=== PATIENT | female | born 1980 | race Caucasian/White ===

== ENCOUNTER → 2018-11-01 | Outpatient (CLI) | payer BC ==
--- NOTE | 2018-11-01 08:50 | MM ---
Reason for exam: additional evaluation requested from abnormal screening. Last mammogram was performed 1 month ago. History: Took hormonal contraceptives for 8 years beginning at age 16. Physical Findings: Nurse did not find any significant physical abnormalities on exam. MG 3D Work Up W/Cad LT Spot compression CC, spot compression XCCL, and XCCL view(s) were taken of the left breast. Prior study comparison: October 09, 2018, bilateral MG 3d screening mammo w/cad. March 18, 2015, bilateral MG screening mammo w CAD. The breast tissue is heterogeneously dense. This may lower the sensitivity of mammography. The previously seen left lateral asymmetry at posterior depth relates to the pectoralis muscle. These results were verbally communicated with the patient and result sheet given to the patient on 11/01/18. ASSESSMENT: Benign, BI-RAD 2 RECOMMENDATION: Return to routine screening mammogram schedule for both breasts.
== END ==
LOC: RADMAMWWP 07:10
PROVIDERS: ATTEND Obstetrics & Gynecology
DX: R92.8 Other abnormal and inconclusive findings on diagnostic imaging of breast (principal)
CPT/HCPCS: 77061; 77065

== ENCOUNTER → 2018-11-20 | Outpatient (CLI) | payer BC ==
--- NOTE | 2018-11-20 10:06 | US ---
EXAMINATION TYPE: US transvaginal DATE OF EXAM: 11/20/2018 COMPARISON: US 10/09/2018 CLINICAL HISTORY: N83.0 Previous ovarian cyst left side. Irregular bleeding TECHNIQUE: . Transvaginal sonographic images of the pelvis were acquired. Date of LMP: 11/04/2018 EXAM MEASUREMENTS: Uterus: 8.2 x 6.2 x 6.2 cm Endometrial Stripe: 2.4 cm Right Ovary: 3.5 x 2.1 x 1.9 cm Left Ovary: 3.9 x 3.3 x 3.8 cm 1. Uterus: Retroflexed Heterogeneous 2. Endometrium: Thickened and vascular 3. Right Ovary: Multiple smaller cystic areas visualized, largest measuring 1.7 x 1.0 x 1.3 cm 4. Left Ovary: Multiple cystic areas visualized. Irregular cystic area with echogenic vascular compo nent within measuring 2.4 x 1.2 x 2.3 cm 5. Bilateral Adnexa: Small amount of free fluid visualized within the left adnexa 6. Posterior cul-de-sac: wnl IMPRESSION: 1. Vascular thickened endometrium that is suspicious. Endometrial polyp, endometrial mass or less lik rl endometrial hyperplasia should be considered. Direct visualization with tissue sampling is recomm ended. 2. Persistent complex left adnexal mass. Given the internal vascularity of a 2.4 cm solid component w ithin a left ovarian cyst this lesion is suspicious. Further evaluation with pelvic MRI to evaluate f or enhancement of this large mural nodule could be performed or consultation with gynecologic/oncolog ic surgery. 3. Simple appearing right ovarian cysts.
== END | disposition home or self-care (01) ==
LOC: RADUSWWP 09:05
PROVIDERS: ATTEND Obstetrics & Gynecology
DX: R93.89 Abnormal findings on diagnostic imaging of other specified body structures (principal)
CPT/HCPCS: 76830

== ENCOUNTER 2018-12-11 06:12 | Day surgery (SDC) | payer BC ==
[2018-12-10 08:26] VITALS: BMI 22.6
--- NOTE | 2018-12-10 12:32 | P.HPOB ---
History of Present Illness H&P Date: 12/10/18 Chief Complaint: Dysfunctional uterine bleeding. this patient is a pleasant 38-year-old 2 para 2 female who initially presented to me for evaluation of heavy and irregular menstrual cycles. Patient 's had menstrual cycles that occurring every 2 weeks with two-week breaks between her cycles. She had an endometrial biopsy which was normal however ultrasound showed endometrial thickening to 2.5 cm. Patient is now presenting for hysteroscopy D&C and NovaSure endometrial ablation for further treatment. Review of Systems Genitourinary: Reports as per HPI, Reports abnormal vaginal bleeding Menstruation: Reports cycle variable, Reports period heavy Past Medical History Past Medical History: Blood Disorder Additional Past Medical History / Comment(s): patient has a MTHFR gene mutation (heterozygous). History of Any Multi-Drug Resistant Organisms: None Reported Additional Past Surgical History / Comment(s): [place] teeth. Past Anesthesia/Blood Transfusion Reactions: No Reported Reaction Past Psychological History: No Psychological Hx Reported Smoking Status: Never smoker Past Alcohol Use History: None Reported, Rare Past Drug Use History: None Reported - Past Family History Mother Family Medical History: No Reported History Medications and Allergies Home Medications Medication Instructions Recorded Confirmed Type Ascorbic Acid [Vitamin C] 500 mg PO DAILY 12/10/18 12/10/18 History Multivitamins, Thera [Multivitamin 1 tab PO DAILY 12/10/18 12/10/18 History (formulary)] Turmeric Root Extract [Turmeric] 500 mg PO DAILY 12/10/18 12/10/18 History Allergies Allergy/AdvReac Type Severity Reaction Status Date / Time No Known Allergies Allergy Verified 12/10/18 08:18 Exam Intake and Output 12/09/18 12/10/18 12/10/18 22:59 06:59 14:59 Other: Weight 63.503 kg - OBG Physical Exam Abdomen: bowel sounds normal, no diffuse tenderness, no bruit present, no guarding noted, no hepatomegaly, no splenomegaly, no mass Vulva: both: normal Vagina: normal moisture, no discharge Cervix: no lesion, no discharge Uterus: normal size, normal contour Adnexa: both: normal Results Transvaginal ultrasound shows the endometrium to be 2.4 cm. She also has multiple small cystic areas and bilateral ovaries which we're following. Assessment and Plan Assessment: This is a pleasant 38-year-old 2 para 2 female with dysfunctional uterine bleeding and endometrial thickening on ultrasound. Patient's had normal endometrial sampling but continues to have bleeding problems and therefore now presents for hysteroscopy, D&C and also requesting endometrial ablation. I have discussed these surgeries and benefits risks. She understands the risks of infection, bleeding, possible uterine perforation/ thermal injury, possible future sampling problems. Patient also understands this is not a form of control. All the patient's questions have been answered and a written consent is obtained. (1) Dysfunctional uterine bleeding Status: Acute Code(s): N93.8 - OTHER SPECIFIED ABNORMAL UTERINE AND VAGINAL BLEEDING SNOMED Code(s): 48111685 (2) Endometrial thickening on ultrasound Status: Acute Code(s): R93.89 - ABNORMAL FINDINGS ON DX IMAGING OF OTH BODY STRUCTURES SNOMED Code(s): 953139017
[~2018-12-11 06:12] MED LIST: DEXAMETHASONE SOD PHOSPHATE 10 MG/ML 1 ML VIAL IV ONE; HYDROmorphone 0.5 MG/0.5 ML SYRINGE IVP PRN; LACTATED RINGERS 1,000 ML IV SCH; MIDAZOLAM (PF) 2 MG/2 ML VIAL IV PRN; ONDANSETRON 4 MG/2 ML VIAL IVP ONE; Pre Op ABX Message 1 EACH MISC MISCELLANE ONE; SCOPOLAMINE 1.5MG/72HR PATCH TRANSDERM ONE
[2018-12-11] MEDS ORDERED: LIDOCAINE 1% 20 ML VIAL (10MG/ML) FOR IV START INTRADERMA ONE (06:45)
[2018-12-11] MEDS ORDERED: KETOROLAC 30 MG/ML 1 ML VIAL ONE (07:19)
[2018-12-11] MEDS ORDERED: LIDOCAINE 1% INJ 10MG/ML (20 ML MDV) ONE (07:19)
[2018-12-11] MEDS ORDERED: MIDAZOLAM 2 MG/2 ML VIAL ONE (07:19)
[2018-12-11] MEDS ORDERED: SUCCINYLCHOLINE CHLORIDE 100 MG/5 ML SYR IV ONE (07:19)
[2018-12-11] MEDS ORDERED: PROPOFOL 10 MG/ML 20 ML VIAL IV ONE (07:19)
[2018-12-11 08:06] VITALS: RESP 18; TEMP 97.8
--- NOTE | 2018-12-11 08:09 | P.OP ---
Date of Procedure: 12/11/18 Preoperative Diagnosis: Dysfunctional uterine bleeding Postoperative Diagnosis: Same, endometrial polyp/fibroid Procedure(s) Performed: #1: Hysteroscopy. #2: Dilation and curettage. #3: Removal of intrauterine polyp/fibroid. #4: NovaSure endometrial ablation Anesthesia: NICOLE Surgeon: Johnnie Barajas Estimated Blood Loss (ml): 25 Urine output (ml): 50 Pathology: other (Intrauterine growths. Endometrial curetting) Condition: stable Disposition: PACU Indications for Procedure: Please see dictated H&P for intimate details of this patient's admission. Brief summary this is a pleasant 38-year-old 2 para 2 female whose had several month history of menorrhagia and dysfunctional uterine bleeding. Ultrasound showed persistent endometrial thickening to 2.4 cm. She now presents for hysteroscopy D&C and NovaSure endometrial ablation for treatment. Patient I have discussed the surgery and risks including risks of infection, bleeding, possible uterine perforation, and/or thermal injury. All the patient' s questions are answered and a written consent is obtained. Operative Findings: This patient had a large 3 cm solid growth of the endometrium consistent with a polyp or leiomyoma. Description of Procedure: This patient is taken to the operating room where she is laid in the supine position. She subsequent undergoes general endotracheal anesthesia without incident. With an adequate level of anesthesia she's placed in dorsal lithotomy position. She has a vaginal perineal prep and drape. Bladder is drained for 50 mL of clear urine. Place weighted speculum posterior vagina. Anterior lip of cervix and grabbed with an Allis clamp. Then gently sound the uterus to 8.5 cm. The cervix is dilated gently to allow the hysteroscope into the uterine cavity. Using saline solution hysteroscopy is performed and there is a large intrauterine polyp or fibroid. Hysteroscope was then removed. Using polyp forceps and ring forceps I'm able to twist this growth off of its base and appears to be completely removed.'s quite large approximately 2-3 cm in dimensions. It does appear benign. With this done I didn't do a gentle 4 quadrant curettage this is sent separately to pathology. The cervix is quite dilated from this large polyp but patient is requested a trial of ablation therefore the NovaSure device is then opened. It appears to be intact. Set at a length of 6 cm. It opens up to a width of 4.2 cm. It does passes the cavity integrity test is then enabled at [address] setting and does work properly for 26 seconds. This time the NovaSure device is removed. Hysteroscopy is then performed the uterine cavity appears to be ablated. There is minimal bleeding. All counts are correct 3. There are no complications. Patient is awakened from anesthesia and taken recovery room satisfactory condition.
[2018-12-11 09:06] VITALS: BP 109/74; PULSE 78
== END 2018-12-11 09:26 | disposition home or self-care (01) ==
LOC: OR 06:12
PROVIDERS: ATTEND Obstetrics & Gynecology
DX: D25.9 Leiomyoma of uterus, unspecified (principal); E72.12 Methylenetetrahydrofolate reductase deficiency; D75.9 Disease of blood and blood-forming organs, unspecified
CPT/HCPCS: 81025; 88305; 58563; J2250; J1100; J2405; J2001; J1885; J0330; J2704

== ENCOUNTER → 2019-01-01 | Outpatient (CLI) | payer BC ==
--- NOTE | 2019-01-01 17:15 | US ---
EXAMINATION TYPE: US transvaginal DATE OF EXAM: 01/01/2019 COMPARISON: NONE CLINICAL HISTORY: N83.0 Ovarian Cyst. follow up on left ovarian cyst with solid component, recent abl ation with poly/fibroid removal. TECHNIQUE: TV. Date of LMP: 12/22/2018 EXAM MEASUREMENTS: Uterus: 8.7 x 6.1 x 5.3cm Endometrial Stripe: 1.2cm Right Ovary: 2.7 x 2.8 x 2.8cm Left Ovary: 3.1 x 3.0 x 2.6cm 1. Uterus: Retroverted wnl 2. Endometrium: wnl 3. Right Ovary: multiple cystic areas, one had internal echoes and measures 1.1 x 1.4 x 0.7cm 4. Left Ovary: simple cyst =2.1 x 1.9 x 1.3cm, also a 1.7cm cysts with internal solid lesion, with v ascularity, measuring 1.0cm 5. Bilateral Adnexa: mild free fluid on the right 6. Posterior cul-de-sac: wnl IMPRESSION: 1. Complex right ovarian cyst measuring 1.1 x 1.4 x 0.7 cm. Follow-up is recommended. 2. 1.7 cm complex cyst which contains solid component measuring 1.0 x 0.4 x 1.0 cm. This was present previously. Correlate with laboratory results.
== END | disposition home or self-care (01) ==
LOC: RADUSWWP 08:22
PROVIDERS: ATTEND Obstetrics & Gynecology
DX: N83.292 Other ovarian cyst, left side (principal); N83.291 Other ovarian cyst, right side
CPT/HCPCS: 36415; 76830; 86304

== ENCOUNTER → 2019-08-27 | Outpatient (CLI) | payer BC ==
[2019-08-27 10:56] LABS: Basophils % (A) 1 %; Eosinophils # (A) 0.1 k/uL (0-0.7); Eosinophils % (A) 3 %; HCT 42.2 % (34.0-46.0); HGB 13.5 gm/dL (11.4-16.0); Lymphocytes # (A) 1.7 k/uL (1.0-4.8); Lymphocytes % (A) 36 %; MCH 28.3 pg (25.0-35.0); MCHC 31.9 g/dL (31.0-37.0); MCV 88.7 fL (80.0-100.0); Monocytes # (A) 0.2 k/uL (0-1.0); Monocytes % (A) 4 %; Neutrophils # (A) 2.7 k/uL (1.3-7.7); Neutrophils % (A) 55 %; Platelet Count 240 k/uL (150-450); RBC 4.75 m/uL (3.80-5.40); RDW 13.8 % (11.5-15.5); WBC 4.9 k/uL (3.8-10.6)
[2019-08-27 16:14] LABS: African American GFR (CKD) 106.1 (60.0-200.0); Albumin 4.5 g/dL (3.80-4.90); Albumin/Globulin Ratio 2.25 (1.60-3.17); Anion Gap 10.3 mmol/L (4.00-12.00); BUN/Creat Ratio 18.75 Ratio (12.00-20.00); Calcium 9.5 mg/dL (8.7-10.3); Carbon Dioxide 24.7 mmol/L (21.6-31.8); Chol/HDL Ratio 4.59; LDL Cholesterol,Calculated 143.6 mg/dL (0.0-131.0); Total Bilirubin 0.7 mg/dL (0.2-1.2); Total Protein 6.5 g/dL (6.2-8.2); VLDL Calculation 32.4 mg/dL (5.00-40.00)
[2019-08-27 16:24] LABS: Iron Saturation 22.92 (12.00-45.00)
[2019-08-27 16:37] LABS: Ferritin 25.1 ng/mL (10.0-291.0)
[2019-08-27 16:44] LABS: Folate, Serum 12.3 ng/mL
[2019-08-27 17:02] LABS: Cancer Antigen 125 69.4 U/mL (0.0-30.1)
== END | disposition home or self-care (01) ==
LOC: LABWHC1 09:33
PROVIDERS: ATTEND Family Medicine
DX: Z00.00 Encounter for general adult medical examination without abnormal findings (principal); D50.9 Iron deficiency anemia, unspecified; R20.0 Anesthesia of skin; R19.09 Other intra-abdominal and pelvic swelling, mass and lump
CPT/HCPCS: 36415; 80053; 80061; 82607; 82728; 82746; 83540; 83550; 85025; 86304

== ENCOUNTER → 2019-08-27 | Outpatient (CLI) | payer BC ==
--- NOTE | 2019-08-27 10:32 | US ---
EXAMINATION TYPE: US pelvis complete transvag DATE OF EXAM: 08/27/2019 COMPARISON: NONE CLINICAL HISTORY: Ovarian Cyst N83.0. h/o multiple ovarian lesions, CA125 done last winter was high a t 39, h/o ablation and endometrial polyp removal, no pain today TECHNIQUE: TA/TV. Transabdominal sonographic images of the pelvis were acquired. Transvaginal sono graphic images were medically necessary to better assess the following anatomy: all organs, bladder n ot full Date of LMP: 08/13/2019 EXAM MEASUREMENTS: Uterus: 8.0 x 5.0 x 6.0 cm Endometrial Stripe: 0.6 cm Right Ovary: 3.2 x 2.9 x 2.3 cm Left Ovary: 3.1 x 4.2 x 3.1 cm 1. Uterus: Retroverted wnl 2. Endometrium: wnl 3. Right Ovary: 1.0cm dominate follicle versus involuting cyst 4. Left Ovary: 1.8 x 2.0 x 2.0cm complex cyst with internal septations along with a solid lesion, mil d vascularity seen, that was noted on previous exams measuring today at 1.9cm 5. Bilateral Adnexa: wnl 6. Posterior cul-de-sac: wnl IMPRESSION: 1. Suspected cysts on the bilateral ovaries. 2. This is complex on the left and work-up or follow-up is recommended. Correlate with laboratory sobia dies.
== END | disposition home or self-care (01) ==
LOC: RADUSWWP 08:54
PROVIDERS: ATTEND Obstetrics & Gynecology
DX: N83.209 Unspecified ovarian cyst, unspecified side (principal)
CPT/HCPCS: 76830; 76856

== ENCOUNTER 2019-11-30 16:21 | Emergency (ER) | payer BC ==
[2019-11-30] MEDS ORDERED: SODIUM CHLORIDE 0.9% 1,000 ML IV STA (17:00)
[2019-11-30 17:32] LABS: Appearance,Urine Clear (Clear); Bacteria,Urine Rare /hpf; Bilirubin,Urine Negative (Negative); Blood,Urine Negative (Negative); Color,Urine Yellow; Glucose,Urine (UA) Negative (Negative); Ketones,Urine Negative (Negative); Leukocyte Esterase,Urine Trace (Negative); Mucus,Urine Rare /hpf; Nitrite,Urine Negative (Negative); PH, Urine 5.5 (5.0-8.0); Protein,Urine Negative (Negative); RBC,Urine <1 /hpf (0-5); Specific Gravity,Urine 1.014 (1.001-1.035); Squamous Epithelial Cell,Urine 3 /hpf (0-4); Urobilinogen,Urine <2.0 mg/dL (<2.0); WBC,Urine 2 /hpf (0-5)
[2019-11-30 17:39] LABS: Basophils # (A) 0.2 k/uL (0-0.2); Basophils % (A) 2 %; Eosinophils # (A) 0.2 k/uL (0-0.7); Eosinophils % (A) 2 %; HCT 47.9 % (34.0-46.0); HGB 15.7 gm/dL (11.4-16.0); Lymphocytes # (A) 2.8 k/uL (1.0-4.8); Lymphocytes % (A) 29 %; MCH 29.2 pg (25.0-35.0); MCHC 32.7 g/dL (31.0-37.0); MCV 89.4 fL (80.0-100.0); Mean Platelet Volume 7.3; Monocytes # (A) 0.4 k/uL (0-1.0); Monocytes % (A) 4 %; Neutrophils # (A) 5.8 k/uL (1.3-7.7); Neutrophils % (A) 61 %; Platelet Count 363 k/uL (150-450); RBC 5.36 m/uL (3.80-5.40); RDW 12.4 % (11.5-15.5); WBC 9.6 k/uL (3.8-10.6)
[2019-11-30 17:48] LABS: ALT 19 U/L (4-34); AST 27 U/L (14-36); African American GFR (CKD) >90 (>60 ml/min/1.73 sqM); Albumin 5.2 g/dL (3.5-5.0); Alkaline Phosphatase 85 U/L (38-126); Anion Gap 13 mmol/L; Blood Urea Nitrogen 15 mg/dL (7-17); Calcium 10.1 mg/dL (8.4-10.2); Carbon Dioxide 20 mmol/L (22-30); Chloride 106 mmol/L (98-107); Glucose 93 mg/dL (74-99); Non-African American GFR(CKD) 87 (>60 ml/min/1.73 sqM); Potassium 4.1 mmol/L (3.5-5.1); Sodium 139 mmol/L (137-145); Total Bilirubin 0.6 mg/dL (0.2-1.3); Total Protein 8.8 g/dL (6.3-8.2)
[2019-11-30 18:12] VITALS: PULSE 83
--- NOTE | 2019-11-30 18:23 | ED ---
Abdominal Pain HPI - General Chief Complaint: Abdominal Pain Stated Complaint: post op pain Time Seen by Provider: 11/30/19 16:30 Source: patient Mode of arrival: ambulatory Limitations: no limitations - History of Present Illness Initial Comments: The patient is a 39-year-old female with past medical history of ovarian cysts who presents to the emergency room for right lower quadrant pain. She had surgery by Dr. Ybarra from the [facility] on April. This is because of an enlarged left ovary. She had a left oophorectomy and bilateral fallopian tube removal. She states that she woke up from surgery and had excruciating right lower quadrant pain. It is worse when she sits up unassisted when she stands. It is a sharp stabbing sensation which improves when she sits down. She states she was sent home and told to take Motrin and Tylenol. She had persistence the pain. She followed up with her surgeon last week who gave her prescription for Bracey. States she hasn't been taking medications because she does not want narcotics. He did order an ultrasound for Sunday. 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 Denies any abnormal vaginal bleeding or discharge. Las t menstrual cycle ended on the eighth of this month. Denies any urinary complaints to include dysuria, hematuria or difficulty voiding. No issues in her bowel movements. Denies diarrhea, constipation, melenic stools or hematochezia. No retention. Denies a back or flank pain. No fevers or chills. She has been taking Motrin which has been keeping her symptoms controlled. There are no alleviating, precipitating or modifying factors - Related Data Home Medications Medication Instructions Recorded Confirmed Ascorbic Acid [Vitamin C] 500 mg PO DAILY 12/10/18 11/30/19 Multivitamins, Thera [Multivitamin 1 tab PO DAILY 12/10/18 11/30/19 (formulary)] Acetaminophen [Tylenol Extra 1,000 mg PO Q8H PRN 11/30/19 11/30/19 Strength] Ibuprofen [Motrin Ib] 800 mg PO Q8H PRN 11/30/19 11/30/19 Allergies Allergy/AdvReac Type Severity Reaction Status Date / Time No Known Allergies Allergy Verified 11/30/19 17:58 Review of Systems ROS Statement: Those systems with pertinent positive or pertinent negative responses have been documented in the HPI. ROS Other: All systems not noted in ROS Statement are negative. Past Medical History Past Medical History: No Reported History Additional Past Medical History / Comment(s): ovarian cyst History of Any Multi-Drug Resistant Organisms: None Reported Past Surgical History: Uterine Ablation Past Psychological History: No Psychological Hx Reported Smoking Status: Never smoker Past Alcohol Use History: Rare Past Drug Use History: None Reported General Exam Limitations: no limitations General appearance: alert, in no apparent distress Head exam: Present: atraumatic, normocephalic, normal inspection Eye exam: Present: normal appearance, PERRL, EOMI. Absent: scleral icterus, conjunctival injection, periorbital swelling ENT exam: Present: normal exam, mucous membranes moist Neck exam: Present: normal inspection. Absent: tenderness, meningismus, lymphadenopathy Respiratory exam: Present: normal lung sounds bilaterally. Absent: respiratory distress, wheezes, rales, rhonchi, stridor Cardiovascular Exam: Present: regular rate, normal rhythm, normal heart sounds. Absent: systolic murmur, diastolic murmur, rubs, gallop, clicks GI/Abdominal exam: Present: soft, tenderness (right lower quadrant. Incisions are c/d/i. No peritoneal signs. No palpable masses), normal bowel sounds. Absent: distended, guarding, rebound, rigid Extremities exam: Present: normal inspection, full ROM, normal capillary refill. Absent: tenderness, pedal edema, joint swelling, calf tenderness Back exam: Present: normal inspection Neurological exam: Present: alert, oriented X3, CN II-XII intact Psychiatric exam: Present: normal affect, normal mood Skin exam: Present: warm, dry, intact, normal color. Absent: rash Course Vital Signs 11/30/19 11/30/19 11/30/19 16:28 18:11 20:00 Temperature 98.4 F 98.7 F 98 F Pulse Rate 94 83 83 Respiratory 18 20 18 Rate Blood Pressure 117/78 128/80 119/86 O2 Sat by Pulse 98 97 99 Oximetry Medical Decision Making - Medical Decision Making Upon arrival the patient is placed into room 9. Her history and physical exam is performed. I did offer the patient something for pain and nausea however she refuses at this time. I discussed diagnosis, differential and treatment options. The patient does opt for a CT of her abdomen and pelvis that she is concerned about postop complications. I recommended laboratory studies. CBC is unremarkable. CMP shows a CO2 of 20. Lactic acid elevated at 3. Urinalysis shows trace leukocyte esterase with rare bacteria. HCG is negative. CT of abdomen and pelvis demonstrates no definite acute process. There are 2 smoothly marginated homogeneous hypodense cystic-like structures left adnexal position measuring 1 cm and 2 cm pelvic ultrasound is performed because of the cystic masses which demonstrates no acute process. Nonvisualized right ovary. 2 cysts within the left ovary largest measuring 2.2 cm. I discussed results with the patient. I discussed diagnosis, differential and treatment options. At this time the patient is given copies of her CT and ultrasound report. She will call her surgeon in the morning for follow-up. Return to the emergency room for any new worsening symptoms. Patient was discharged home in stable condition - Lab Data Result diagrams: 11/30/19 17:19 11/30/19 17:19 Lab Results 11/30/19 11/30/19 11/30/19 Range/Units 17:05 17:05 17:19 WBC (3.8-10.6) k/uL RBC (3.80-5.40) m/uL Hgb (11.4-16.0) gm/dL Hct (34.0-46.0) % MCV (80.0-100.0) fL MCH (25.0-35.0) pg MCHC (31.0-37.0) g/dL RDW (11.5-15.5) % Plt Count (150-450) k/uL Neutrophils % % Lymphocytes % % Monocytes % % Eosinophils % % Basophils % % Neutrophils # (1.3-7.7) k/uL Lymphocytes # (1.0-4.8) k/uL Monocytes # (0-1.0) k/uL Eosinophils # (0-0.7) k/uL Basophils # (0-0.2) k/uL Sodium (137-145) mmol/L Potassium (3.5-5.1) mmol/L Chloride (98-107) mmol/L Carbon Dioxide (22-30) mmol/L Anion Gap mmol/L BUN (7-17) mg/dL Creatinine (0.52-1.04) mg/dL Est GFR (CKD-EPI)AfAm (>60 ml/min/1.73 sqM) Est GFR (CKD-EPI)NonAf (>60 ml/min/1.73 sqM) Glucose (74-99) mg/dL Plasma Lactic Acid Javier 3.0 H* (0.7-2.0) mmol/L Calcium (8.4-10.2) mg/dL Total Bilirubin (0.2-1.3) mg/dL AST (14-36) U/L ALT (4-34) U/L Alkaline Phosphatase (38-126) U/L Total Protein (6.3-8.2) g/dL Albumin (3.5-5.0) g/dL Lipase (23-300) U/L Urine Color Yellow Urine Appearance Clear (Clear) Urine pH 5.5 (5.0-8.0) Ur Specific Railroad 1.014 (1.001-1.035) Urine Protein Negative (Negative) Urine Glucose (UA) Negative (Negative) Urine Ketones Negative (Negative) Urine Blood Negative (Negative) Urine Nitrite Negative (Negative) Urine Bilirubin Negative (Negative) Urine Urobilinogen <2.0 (<2.0) mg/dL Ur Leukocyte Esterase Trace H (Negative) Urine RBC <1 (0-5) /hpf Urine WBC 2 (0-5) /hpf Ur Squamous Epith Cells 3 (0-4) /hpf Urine Bacteria Rare H (None) /hpf Urine Mucus Rare H (None) /hpf Urine HCG, Qual Not Detected (Not Detectd) 11/30/19 11/30/19 Range/Units 17:19 17:19 WBC 9.6 (3.8-10.6) k/uL RBC 5.36 (3.80-5.40) m/uL Hgb 15.7 (11.4-16.0) gm/dL Hct 47.9 H (34.0-46.0) % MCV 89.4 (80.0-100.0) fL MCH 29.2 (25.0-35.0) pg MCHC 32.7 (31.0-37.0) g/dL RDW 12.4 (11.5-15.5) % Plt Count 363 (150-450) k/uL Neutrophils % 61 % Lymphocytes % 29 % Monocytes % 4 % Eosinophils % 2 % Basophils % 2 % Neutrophils # 5.8 (1.3-7.7) k/uL Lymphocytes # 2.8 (1.0-4.8) k/uL Monocytes # 0.4 (0-1.0) k/uL Eosinophils # 0.2 (0-0.7) k/uL Basophils # 0.2 (0-0.2) k/uL Sodium 139 (137-145) mmol/L Potassium 4.1 (3.5-5.1) mmol/L Chloride 106 (98-107) mmol/L Carbon Dioxide 20 L (22-30) mmol/L Anion Gap 13 mmol/L BUN 15 (7-17) mg/dL Creatinine 0.84 (0.52-1.04) mg/dL Est GFR (CKD-EPI)AfAm >90 (>60 ml/min/1.73 sqM) Est GFR (CKD-EPI)NonAf 87 (>60 ml/min/1.73 sqM) Glucose 93 (74-99) mg/dL Plasma Lactic Acid Javier (0.7-2.0) mmol/L Calcium 10.1 (8.4-10.2) mg/dL Total Bilirubin 0.6 (0.2-1.3) mg/dL AST 27 (14-36) U/L ALT 19 (4-34) U/L Alkaline Phosphatase 85 (38-126) U/L Total Protein 8.8 H (6.3-8.2) g/dL Albumin 5.2 H (3.5-5.0) g/dL Lipase 199 (23-300) U/L Urine Color Urine Appearance (Clear) Urine pH (5.0-8.0) Ur Specific Railroad (1.001-1.035) Urine Protein (Negative) Urine Glucose (UA) (Negative) Urine Ketones (Negative) Urine Blood (Negative) Urine Nitrite (Negative) Urine Bilirubin (Negative) Urine Urobilinogen (<2.0) mg/dL Ur Leukocyte Esterase (Negative) Urine RBC (0-5) /hpf Urine WBC (0-5) /hpf Ur Squamous Epith Cells (0-4) /hpf Urine Bacteria (None) /hpf Urine Mucus (None) /hpf Urine HCG, Qual (Not Detectd) Disposition Clinical Impression: Abdominal pain, H/O oophorectomy Disposition: HOME SELF-CARE Condition: Stable Instructions (If sedation given, give patient instructions): Abdominal Pain (ED) Additional Instructions: Please call your surgeon on Sunday for follow-up. Return to the emergency room for any new or worsening symptoms Is patient prescribed a controlled substance at d/c from ED?: No Referrals: None,Stated [Primary Care Provider] - 1-2 days Time of Disposition: 19:49
--- NOTE | 2019-11-30 18:32 | CT ---
EXAMINATION TYPE: CT abdomen pelvis w con DATE OF EXAM: 11/30/2019 COMPARISON: None HISTORY: Right sided abdominal pain post LT oophorectomy and bilateral salpingectomy 11-20-2019. CT DLP: 749.1 mGycm Automated exposure control for dose reduction was used. TECHNIQUE: Helical acquisition of images was performed from the lung bases through the pelvis. CONTRAST: Performed without Oral Contrast and with IV Contrast, patient injected with 100 mL of Isovu e 300. FINDINGS: LUNG BASES: No acute process. LIVER/GB: No significant abnormality is appreciated. PANCREAS: No significant abnormality is seen. SPLEEN: No significant abnormality is seen. ADRENALS: No significant abnormality is seen. KIDNEYS: No significant abnormality is seen. PERITONEAL CAVITY: No pneumoperitoneum. No abdominal peritoneal fluid. RETROPERITONEAL ADENOPATHY: None visualized REPRODUCTIVE ORGANS: The uterus is retroverted without flexion adnexal and cul-de-sac, with bilateral adnexal varices incidentally noted. There are 2 smoothly-marginated homogeneously-hypodense cyst-like structures in the left adnexal posi tion measuring 1 cm and 2 cm mean diameter, respectively. There is a small volume of simple-appearing bilateral adnexal and cul-de-sac fluid. URINARY BLADDER: No significant abnormality is seen. PELVIC ADENOPATHY: None visualized. OSSEOUS STRUCTURES: No significant abnormality is seen. BOWEL: No significant bowel abnormality is seen. The appendix has normal appearance; it is retroceca l in position and rises superiorly to nearly abut the liver tip anteriorly. VASCULATURE: No acute findings. OTHER: The anterior abdominal wall is intact. IMPRESSION: No definite acute process; nonspecific adnexal and cul-de-sac findings as discussed.
--- NOTE | 2019-11-30 19:43 | US ---
EXAMINATION TYPE: US pelvic complete DATE OF EXAM: 11/30/2019 COMPARISON: CT 08/27/2020, US 08/27/2019 CLINICAL HISTORY: recent surgery, fluid collections, r/o abscess. Surgery 11/20/2019 to remove bilatera l fallopian tubes and left ovary per patient. RLQ pain TECHNIQUE: Transabdominal sonographic images of the pelvis were acquired. Date of LMP: Unsure EXAM MEASUREMENTS: Uterus: 7.7 x 5.1 x 6.1 cm Endometrial Stripe: 0.7 cm Right Ovary: Not visualized on this exam with certainty Left Ovary: See below 1. Uterus: Retroverted wnl 2. Endometrium: wnl 3. Right Ovary: Not visualized on this exam with certainty 4. Left Ovary: See below 5. Bilateral Adnexa: Within the left adnexa, there is an area that has the appearance of an ovary me asuring 4.1 x 2.3 x 2.8 cm. There are two cystic areas within this, largest measuring 2.2 cm. There i s arterial and venous flow within this area. Small amount of free fluid visualized bilaterally 6. Posterior cul-de-sac: wnl IMPRESSION: 1. No acute process. 2. Non-visualization of right ovary. 3. Two cysts within left ovary, largest measures 2.2 cm.
[2019-11-30 20:37] VITALS: BP 119/86; RESP 18; TEMP 98
== END 2019-11-30 20:38 | disposition home or self-care (01) ==
LOC: EC 16:21
DX: N83.202 Unspecified ovarian cyst, left side (principal); R11.0 Nausea; Z90.721 Acquired absence of ovaries, unilateral; Z90.79 Acquired absence of other genital organ(s); Z98.890 Other specified postprocedural states; Z53.29 Procedure and treatment not carried out because of patient's decision for other reasons
CPT/HCPCS: 36415; 80053; 83605; 83690; 85025; 81001; 81025; 93976; 76856; 74177; 99284; 96360; Q9967

== ENCOUNTER → 2020-08-25 | Outpatient (CLI) | payer BC ==
--- NOTE | 2020-08-27 14:05 | MM ---
Reason for exam: screening (asymptomatic). Last mammogram was performed 1 year and 10 months ago. History: Took hormonal contraceptives for 8 years beginning at age 16. Physical Findings: A clinical breast exam by your physician is recommended on an annual basis and results should be correlated with mammographic findings. MG 3D Screening Mammo W/Cad Bilateral CC and MLO view(s) were taken. Prior study comparison: November 01, 2018, left breast MG 3d work up w/cad LT. October 09, 2018, bilateral MG 3d screening mammo w/cad. The breast tissue is heterogeneously dense. This may lower the sensitivity of mammography. Focal asymmetry left CC anterior. No significant changes when compared with prior studies. ASSESSMENT: Incomplete: need additional imaging evaluation, BI-RAD 0 RECOMMENDATION: Special view mammogram of the left breast. If lesion persists on supplemental views, image directed ultrasound is recommended. [facility] will attempt to contact patient to return for supplemental views and ultrasound if indicated.
== END | disposition home or self-care (01) ==
LOC: RADMAMWWP 10:02
PROVIDERS: ATTEND Family Medicine
DX: Z12.31 Encounter for screening mammogram for malignant neoplasm of breast (principal)
CPT/HCPCS: 77063; 77067

== ENCOUNTER → 2020-09-01 | Outpatient (CLI) | payer BC ==
--- NOTE | 2020-09-06 14:53 | MM ---
Reason for exam: additional evaluation requested from abnormal screening. Last mammogram was performed less than 1 month ago. History: Took hormonal contraceptives for 8 years beginning at age 16. Physical Findings: Nurse did not find any significant physical abnormalities on exam. MG 3D Work Up W/Cad LT Spot compression CC and ML view(s) were taken of the left breast. Prior study comparison: August 25, 2020, bilateral MG 3d screening mammo w/cad. November 01, 2018, left breast MG 3d work up w/cad LT. There are scattered fibroglandular densities. No significant new findings when compared with previous films. These results were verbally communicated with the patient and result sheet given to the patient on 09/01/20. ASSESSMENT: Negative, BI-RAD 1 RECOMMENDATION: Return to routine screening mammogram schedule for both breasts.
== END | disposition home or self-care (01) ==
LOC: RADMAMWWP 09:04
PROVIDERS: ATTEND Family Medicine
DX: R92.8 Other abnormal and inconclusive findings on diagnostic imaging of breast (principal)
CPT/HCPCS: 77061; 77065

== ENCOUNTER → 2022-05-24 | Outpatient (CLI) | payer BC ==
--- NOTE | 2022-05-25 07:48 | MM ---
Reason for Exam: Screening (asymptomatic). Last mammogram was performed 1 year(s) and 9 month(s) ago. Patient History: Menarche at age 11. First Full-Term at age 26. Currently using Progesterone, for 1 year. Hormonal Contraceptives, starting at age 16 for 8 years. Risk Values: Sophy 5 year model risk: 0.9%. NCI Lifetime model risk: 10.7%. Prior Study Comparison: 11/01/2018 Left Diagnostic Mammogram, [facility]. 08/25/2020 Bilateral Screening Mammogram, [facility]. 09/01/2020 Left Diagnostic Mammogram, [facility]. Tissue Density: The breast tissue is heterogeneously dense. This may lower the sensitivity of mammography. Findings: Analyzed By CAD. Asymmetric density seen best on left MLO view far posteriorly. Additional views are recommended. Right breast is free of mass distortion or suspicious calcifications. Overall Assessment: Incomplete: need additional imaging evaluation, BI-RAD 0 Management: Diagnostic Mammogram of the left breast. A clinical breast exam by your physician is recommended on an annual basis and results should be correlated with mammographic findings. Electronically signed and approved by: Shashi Licona M.D. Radiologis
== END | disposition home or self-care (01) ==
LOC: RADMAMWWP 07:09
PROVIDERS: ATTEND Family Medicine
DX: Z12.31 Encounter for screening mammogram for malignant neoplasm of breast (principal)
CPT/HCPCS: 77063; 77067

== ENCOUNTER → 2022-05-26 | Outpatient (CLI) | payer BC ==
--- NOTE | 2022-05-26 07:29 | MM ---
Reason for Exam: Additional evaluation requested from abnormal screening. Last screening mammogram was performed less than 1 month ago. Patient History: Menarche at age 11. First Full-Term at age 26. Patient has history of breast feeding. Currently using Progesterone, for 1 year. Hormonal Contraceptives, starting at age 16 for 8 years. Risk Values: Sophy 5 year model risk: 0.9%. NCI Lifetime model risk: 10.7%. Prior Study Comparison: 08/25/2020 Bilateral Screening Mammogram, [facility]. 09/01/2020 Left Diagnostic Mammogram, [facility]. 05/24/2022 Bilateral MG 3D screening mammo w/cad, [facility]. Tissue Density: Left: There are scattered fibroglandular densities. Findings: Analyzed By CAD. No new suspicious mass in the left breast upper outer aspect. Asymmetric prominent tissue at this level is unchanged from older mammograms. Overall Assessment: Negative, BI-RAD 1 Management: Screening Mammogram of both breasts in 1 year. Back on schedule. Results were given to the patient verbally at the time of exam. Electronically signed and approved by: Nino Thompson M.D.
== END | disposition home or self-care (01) ==
LOC: RADMAMWWP 06:59
PROVIDERS: ATTEND Family Medicine
DX: R92.8 Other abnormal and inconclusive findings on diagnostic imaging of breast (principal)
CPT/HCPCS: 77061; 77065